=== PATIENT | female | born 1990 | race Caucasian/White ===

== ENCOUNTER 2024-05-24 09:22 | Emergency (ER) | payer SELFPAY ==
[~2024-05-24] VITALS: Ht 162.6 cm; Wt 113.4 kg
[2024-05-24 09:22] VITALS: BP 147/89; PULSE 76; RESP 18; TEMP 98.3; O2SAT 93
[~2024-05-24 09:22] MED LIST: HYDR-3101 PO; IBUP200T49 PO; PNV1TABL34 PO
[2024-05-24 09:42] LABS: BASOPHIL % 0.3 % (0.1-1.2); EOSINOPHIL # 0.1 10^3/uL (0.0-0.2); EOSINOPHIL % 0.9 % (0.0-5.0); HEMATOCRIT(ML) 43.1 % (36.0-46.0); HEMOGLOBIN 13.8 g/dL (12.0-15.0); LYMPHOCYTES # 1.45 10^3/uL1 (1.0-4.8); LYMPHOCYTES % 18.1 % (24.0-44.0); MEAN CORP HGB 27.6 pg (26-34); MEAN CORP VOLUME 86.2 fL (78-100); MONOCYTES # 0.3 10^3/uL (0.3-0.8); MONOCYTES % 4.3 % (5.0-12.0); NEUTROPHIL # 6.1 10^3/uL (1.8-7.7); NEUTROPHILS % 76.3 % (41.0-85.0); PLATELET COUNT 269 10^3/uL (150-400); RED CELL DISTRIBUTION WIDTH 13.9 % (11.5-14.5)
[2024-05-24 09:46] LABS: +ADD MANUAL DIFF(NO CHRG) NO
[2024-05-24 10:02] LABS: PROTHROMBIN PROTIME 10.2 SEC (9.3-11.6)
[2024-05-24 10:07] LABS: ALANINE AMINOTRANSFERASE(ML) 42 U/L (12-78); ALBUMIN(ML) 4.1 g/dL (3.4-5.0); ALBUMIN/GLOBULIN RATIO 0.953; ALKALINE PHOSPHATASE 88 U/L (50-136); ANION GAP 14.6; ASPARTATE AMINO TRANSFERASE 29 U/L (0-35); CALCIUM 9.2 mg/dL (8.4-10.5); CARBON DIOXIDE 24.6 mmol/L (20.0-32); CREATININE SERUM 0.79 mg/dL (0.59-1.40); EST GFR, NON-AA 82.8 (>/=60); GLUCOSE 100 mg/dL (74-106); POTASSIUM 4.2 mmol/L (3.6-5.2); SODIUM 138 mmol/L (132-145)
[2024-05-24 10:08] LABS: TROPONIN I HIGH SENSITIVITY < 4 ng/L (0-50)
[2024-05-24 11:05] LABS: BILIRUBIN,URINE NEGATIVE (NEGATIVE); LEUKOCYTE ESTERASE ,URINE NEGATIVE (NEGATIVE); NITRATE,URINE NEGATIVE (NEGATIVE); PH,URINE 5.5 (4.5-8.0); UROBILINOGEN,URINE 0.2 E.U./dL (0.2)
[2024-05-24 11:08] LABS: APPEARANCE,URINE CLEAR; UA COLOR YELLOW
[2024-05-24] MEDS ORDERED: TORADOL ONE (11:29)
[2024-05-24 11:31] VITALS: BP 153/75; PULSE 68; RESP 18; O2SAT 95
[2024-05-24] MEDS: TORADOL IV STA (11:34)
== END 2024-05-24 11:31 | disposition home or self-care (01) ==
LOC: ER 09:22
DX: D18.03 Hemangioma of intra-abdominal structures (principal); K46.9 Unspecified abdominal hernia without obstruction or gangrene; R07.9 Chest pain, unspecified; F12.90 Cannabis use, unspecified, uncomplicated; Z98.890 Other specified postprocedural states
CPT/HCPCS: 99285; 74177; 96374; 71045; 87086; 80053; 85025; 36415; 84484; 81001; 83690; 85610; 85730; 84703; 93005; J1885; Q9965

== ENCOUNTER 2024-06-17 11:42 | Emergency (ER) | payer SELFPAY ==
[~2024-06-17] VITALS: Ht 162.6 cm; Wt 113.4 kg
[2024-06-17 11:52] VITALS: BP 160/100; PULSE 78; RESP 24; TEMP 97.7; O2SAT 100
[2024-06-17 12:05] LABS: HEMATOCRIT(ML) 41.4 % (36.0-46.0); HEMOGLOBIN 13.5 g/dL (12.0-15.0); MEAN CORP HGB 27.7 pg (26-34); MEAN CORP HGB CONCENTRATION 32.6 g/dL (33-36.5); RED BLOOD CELL 4.87 10^6/uL (4.00-5.20); RED CELL DISTRIBUTION WIDTH 13.9 % (11.5-14.5); WHITE BLOOD CELL 5.7 10^3/uL (4.5-11.0)
[2024-06-17] MEDS ORDERED: NS 1000ML 1,000 ML ONE (12:26)
[2024-06-17] MEDS ORDERED: ZOFRAN ONE (12:26)
[2024-06-17 12:27] LABS: ANION GAP 10.6; CALCIUM 9.1 mg/dL (8.4-10.5); CARBON DIOXIDE 26.1 mmol/L (20.0-32); CREATININE SERUM 0.75 mg/dL (0.59-1.40); EST GFR, NON-AA 87.4 (>/=60); GLUCOSE 95 mg/dL (74-106); POTASSIUM 3.7 mmol/L (3.6-5.2); SODIUM 138 mmol/L (132-145)
[2024-06-17] MEDS ORDERED: MORPHINE SULFATE ONE (12:27)
[2024-06-17 12:30] LABS: TROPONIN I HIGH SENSITIVITY < 4 ng/L (0-50)
[2024-06-17] MEDS ORDERED: HYDR25TA PO (12:52)
[2024-06-17 12:53] VITALS: BP 162/93; PULSE 73; RESP 24; TEMP 97.7; O2SAT 100
== END 2024-06-17 12:50 | disposition home or self-care (01) ==
LOC: ER 11:42
DX: F41.9 Anxiety disorder, unspecified (principal); R03.0 Elevated blood-pressure reading, without diagnosis of hypertension; R07.9 Chest pain, unspecified; F12.90 Cannabis use, unspecified, uncomplicated; Z98.890 Other specified postprocedural states
CPT/HCPCS: 99285; 71045; 85027; 36415; 80048; 85379; 84484; 93005; J2270; J7030; J2405